=== PATIENT | female | born 1995 | race African-American/Black ===

== ENCOUNTER 2021-06-30 12:03 | Observation (INO) | payer OTHER, SELFPAY ==
[2021-06-30 12:40] VITALS: BMI 38.7
[2021-06-30] MEDS ORDERED: Acetaminophen 325 MG TAB PO PRN (13:46)
[2021-06-30] MEDS ORDERED: Acetaminophen 650 MG Suppository PR PRN (13:46)
[2021-06-30] MEDS ORDERED: Piperacillin/Tazobactam 2.25 GM in Sodium Chloride 0.9% 100 ML IVPB SCH (14:00)
[2021-06-30] MEDS ORDERED: Piperacillin/Tazobactam 3.375 GM in Sodium Chloride 0.9% 100 ML IVPB SCH (14:30)
[2021-06-30] MEDS: Piperacillin/Tazobactam 3.375 GM in Sodium Chloride 0.9% 100 ML IVPB SCH ×2 (15:07→23:00)
[2021-07-01 04:14] LABS: #Eosinphils 0.1 10x3/uL (0.0-0.5); #Monocytes 0.4 10x3/uL (0.0-1.1); #Neutrophils 3.5 10x3/uL (1.5-8.4); %Basophils 0.5 % (0.0-2.0); %Eosinophils 1.6 % (0.0-6.0); %Lymphocytes 36.5 % (18.0-47.0); %Neutrophils 54.9 % (40.0-75.0); Hemoglobin 12.1 g/dL (12.0-15.5); Mean Corpuscular HGB CONC 33.5 g/dL (32.0-36.0); Mean Corpuscular Hemoglobin 29.2 pg (27.0-33.0); Mean Corpuscular Volume 87.2 fl (81.6-98.3); Mean Platelet Volume 10.1 fl (7.4-10.4); Platelet Count 243 10x3/uL (150-450); RBC Distribution Width 12.9 % (11.5-14.5); Red Blood Cell (RBC) Count 4.14 10x6/uL (3.90-5.03); White Blood Cell (WBC) Count 6.4 10x3/uL (3.5-10.5)
[2021-07-01 04:25] LABS: ALT (SGPT) 16 U/L (8-55); AST (SGOT) 15 U/L (5-34); Albumin 3.4 g/dL (3.5-5.0); Alkaline Phosphatase 56 U/L (40-110); Anion Gap 11 mmol/L (10-20); BUN (Urea Nitrogen) 9 mg/dL (7.0-18.7); Bilirubin, Total 1.5 mg/dL (0.2-1.2); Calc. Creatinine Clearance 154 mL/min (70-130); Calcium 8.6 mg/dL (7.8-10.44); Carbon Dioxide 25 mmol/L (22-29); Chloride 106 mmol/L (98-107); Globulin 2.8 g/dL (2.4-3.5); Glucose 81 mg/dL (70-105); Potassium 3.1 mmol/L (3.5-5.1); Protein, Total 6.2 g/dL (6.0-8.3); Sodium 139 mmol/L (136-145)
[2021-07-01] MEDS: Piperacillin/Tazobactam 3.375 GM in Sodium Chloride 0.9% 100 ML IVPB SCH ×3 (05:15→22:37)
[2021-07-01] MEDS ORDERED: Rocuronium Bromide 10 MG/ML (10ML VIAL) ONE (09:09)
[2021-07-01] MEDS ORDERED: PROPOFOL 20 ML ONE (09:09)
[2021-07-01] MEDS ORDERED: Ondansetron PF 4 MG/2 ML Vial ONE (09:09)
[2021-07-01] MEDS ORDERED: Fentanyl 100 MCG/2 ML VIAL ONE ×2 (09:09→10:39)
[2021-07-01] MEDS ORDERED: Dexamethasone 20 MG/5 ML VIAL ONE (09:09)
[2021-07-01] MEDS ORDERED: Lidocaine 2% PF 5 ML VIAL ONE (09:10)
[2021-07-01] MEDS ORDERED: Bupivacaine 0.25% HCL 30 ML VIAL ONE (09:14)
[2021-07-01] MEDS ORDERED: EPINEPHrine 1 MG/ML AMP ONE (09:14)
[2021-07-01] MEDS ORDERED: Labetalol HCl 100 MG/20 ML VIAL ONE (10:08)
[2021-07-01] MEDS ORDERED: Ketorolac Tromethamine 30 MG/ML VIAL ONE (10:10)
[2021-07-01] MEDS ORDERED: Glycopyrrolate 0.2 MG/ML 5 ML SYRINGE ONE (10:11)
[2021-07-01] MEDS ORDERED: HYDROcodone/Acetaminophen 10/325 mg Tablet PO PRN (10:26)
[2021-07-01] MEDS ORDERED: Promethazine HCl 25 MG/ML VIAL IM PRN (10:26)
[2021-07-01] MEDS ORDERED: Dextrose 50% Abboject 50 ML SYRINGE SLOW IVP PRN (10:26)
[2021-07-01] MEDS ORDERED: Calcium Carbonate 500 MG ChewTAB PO PRN (10:26)
[2021-07-01] MEDS ORDERED: Mag-Al 1200 mg/1200 mg/30 ML UDCUP PO PRN (10:26)
[2021-07-01] MEDS ORDERED: hydrALAZINE 20 MG/ML VIAL SLOW IVP PRN (10:26)
[2021-07-01] MEDS ORDERED: Ondansetron PF 4 MG/2 ML Vial IVP PRN (10:26)
[2021-07-01] MEDS ORDERED: Dextrose 5% in Water 1,000 ML IV PRN (10:26)
[2021-07-01] MEDS ORDERED: Morphine 4 MG/ML VIAL SLOW IVP PRN (11:44)
[2021-07-01] MEDS ORDERED: Potassium Chloride 20 MEQ TAB PO SCH (13:00)
[2021-07-01] MEDS: D5 1/2 NS w/20 mEq KCL 1,000 ML IV SCH (14:38)
[2021-07-01] MEDS: HYDROcodone/Acetaminophen 10/325 mg Tablet PO PRN (16:58)
[2021-07-01 18:19] LABS: SARS-CoV-2 PCR by NAA Not Detected (NotDetected)
[2021-07-01] MEDS ORDERED: Famotidine/PF 20 mg/2ml Vial SLOW IVP SCH (21:00)
[2021-07-01] MEDS: Famotidine 20 MG TAB PO SCH (22:37)
[2021-07-01] MEDS: Morphine 4 MG/ML VIAL SLOW IVP PRN (22:38)
[2021-07-02 04:21] LABS: Anion Gap 10 mmol/L (10-20); BUN (Urea Nitrogen) 8 mg/dL (7.0-18.7); Calc. Creatinine Clearance 164 mL/min (70-130); Calcium 8.7 mg/dL (7.8-10.44); Carbon Dioxide 24 mmol/L (22-29); Chloride 108 mmol/L (98-107); Glucose 108 mg/dL (70-105); Potassium 3.7 mmol/L (3.5-5.1); Sodium 138 mmol/L (136-145)
[2021-07-02] MEDS: Piperacillin/Tazobactam 3.375 GM in Sodium Chloride 0.9% 100 ML IVPB SCH ×2 (06:10→22:52)
[2021-07-02] MEDS: Morphine 4 MG/ML VIAL SLOW IVP PRN (09:21)
[2021-07-02] MEDS: D5 1/2 NS w/20 mEq KCL 1,000 ML IV SCH (09:22)
[2021-07-02] MEDS: Famotidine 20 MG TAB PO SCH (09:22)
[2021-07-02 11:40] VITALS: BP 151/87; TEMP 97.7
[2021-07-02] MEDS: HYDROcodone/Acetaminophen 10/325 mg Tablet PO PRN (14:42)
== END 2021-07-02 15:28 | disposition home or self-care (01) ==
LOC: CSHTELE 12:03 → INTOOBSV 12:03 → CSHTELE 12:34
PROVIDERS: ADMIT Family Medicine; ATTEND Internal Medicine
PROC: 0FT44ZZ Resection of Gallbladder, Percutaneous Endoscopic Approach (ICD-10-PCS; principal; 2021-06-30)
DX: O99.611 Diseases of the digestive system complicating pregnancy, first trimester (principal); K80.12 Calculus of gallbladder with acute and chronic cholecystitis without obstruction; F41.9 Anxiety disorder, unspecified; F32.A Depression, unspecified; I10 Essential (primary) hypertension; Z79.899 Other long term (current) drug therapy; Z20.822 Contact with and (suspected) exposure to COVID-19
CPT/HCPCS: 36415; 76856; 80048; 80053; 84702; 85025; 88304; 94760; 96374; 96376; C1713; G0378; J0171; J1100; J1885; J2001; J2270; J2405; J2543; J2704; J3010; J3480; J3490; S0020; U0003; U0005

== ENCOUNTER 2022-01-19 10:51 | Emergency (ER) | payer BC, OTHER ==
[2022-01-19 12:08] LABS: #Eosinphils 0.1 10x3/uL (0.0-0.5); #Monocytes 0.5 10x3/uL (0.0-1.1); #Neutrophils 5.2 10x3/uL (1.5-8.4); %Basophils 0.1 % (0.0-2.0); %Eosinophils 1.1 % (0.0-6.0); %Lymphocytes 25.6 % (18.0-47.0); %Monocytes 6.2 % (0.0-10.0); %Neutrophils 66.5 % (40.0-75.0); Hemoglobin 12.4 g/dL (12.0-15.5); Mean Corpuscular Hemoglobin 30.3 pg (27.0-33.0); Mean Corpuscular Volume 86.6 fl (81.6-98.3); Mean Platelet Volume 9.9 fl (7.4-10.4); Platelet Count 247 10x3/uL (150-450); RBC Distribution Width 12.4 % (11.5-14.5); Red Blood Cell (RBC) Count 4.09 10x6/uL (3.90-5.03); White Blood Cell (WBC) Count 7.9 10x3/uL (3.5-10.5)
[2022-01-19 12:16] LABS: ALT (SGPT) 7 U/L (8-55); AST (SGOT) 11 U/L (5-34); Albumin 3.6 g/dL (3.5-5.0); Alkaline Phosphatase 54 U/L (40-110); Anion Gap 11 mmol/L (10-20); BUN (Urea Nitrogen) 6 mg/dL (7.0-18.7); Bilirubin, Total 0.5 mg/dL (0.2-1.2); Calc. Creatinine Clearance 0 mL/min (70-130); Calcium 9.1 mg/dL (7.8-10.44); Carbon Dioxide 23 mmol/L (22-29); Chloride 106 mmol/L (98-107); Estimated GFR 122; Globulin 3.4 g/dL (2.4-3.5); Glucose 78 mg/dL (70-105); Potassium 3.8 mmol/L (3.5-5.1); Sodium 136 mmol/L (136-145)
[2022-01-19 12:51] LABS: Bilirubin Neg (Negative); Blood, Urine Negative (Negative); Glucose, Urine (Dipstick) Normal (Negative); Ketone, Urine 50 mg/dL (Negative); Leukocyte 25 (Negative); Nitrite Negative (Negative); Protein, Urine (Dipstick) 15 mg/dl (Neg-Trace); Specific Gravity, Urine 1.015 (1.005-1.030); Urobilinogen Normal mg/dL (Less than 2)
[2022-01-19 12:52] LABS: Clarity Cloudy (Clear)
[2022-01-19 13:00] LABS: Bacteria/HPF None Seen HPF (None Seen); RBC/HPF None Seen HPF (0-3); WBC/HPF 0-3 HPF (0-3)
== END 2022-01-19 13:56 | disposition left against medical advice (07) ==
LOC: CSHERS 10:51
DX: O99.891 Other specified diseases and conditions complicating pregnancy (principal); Z53.29 Procedure and treatment not carried out because of patient's decision for other reasons; Z3A.15 15 weeks gestation of pregnancy
CPT/HCPCS: 36415; 80053; 81003; 81015; 84702; 85025